=== PATIENT | female | born 1980 | race Caucasian/White ===

== ENCOUNTER 2022-03-07 12:18 | Emergency (ER) | payer MEDICARE, MEDICAID ==
[~2022-03-07] VITALS: Ht 165.1 cm; Wt 72.6 kg
[~2022-03-07 12:18] MED LIST: CEPH-507 PO; CHOL4POW4 PO; DESV100T16 PO; DOXE25CA46 PO; ERGO1250 PO; FERR325T18 PO; GABA-488; HYDR-34 PO; MIRT-68 PO; ONDN4T PO; OXCA600T10 PO; PANT40TA52 PO; PRD20T PO; ROPI1TAB PO; SUCR1TAB PO; TRAM-42 PO; ZOLP5TAB PO
--- NOTE | 2022-03-07 12:38 | ED Syncope ---
General Chief Complaint: Dizziness/Syncope Stated Complaint: SYNCOPE Nursing Triage Note: PT TO ROOM 02 VIA [facility] WITH C/O SYNCOPE, PASSING OUT X3, ABD PAIN AND HEADACHE. EMS REPORTS PT IS DIABETIC AND HAS NOT TAKEN INSULIN FOR "A LONG TIME". Source of Information: Patient, EMS (STEVE DUNCAN APRN) History of Present Illness Date Seen by Provider: Mar 07, 2022 Time Seen by Provider: 12:35 Initial Comments Patient is a 41-year-old female who presents to the emergency department via EMS for evaluation of recurrent syncope, abdominal pain, nausea/vomiting, and headache. Patient initially states she has not been having any diarrhea but shortly after her family arrived they states she has been having multiple episodes of diarrhea. Patient states she had some near syncopal episode yesterday. She states her GI symptoms also began yesterday. Patient reportedly did not hit her head when she syncopized per family. Patient does endorse methamphetamine use daily. (STEVE DUNCAN APRN) Allergies and Home Medications Allergies Coded Allergies: ibuprofen (Verified Allergy, Unknown, 03/07/22) Patient Home Medication List Home Medication List Reviewed: Yes (STEVE DUNCAN APRN) Cholestyramine (with Sugar) (Cholestyramine Packet) 4 Gm Powd.pack, 4 GM PO BID, (Reported) Entered as Reported by: CANDIDO CHOI on 02/18/20 1052 Desvenlafaxine Succinate (Desvenlafaxine Succinate ER) 100 Mg Tab.er.24h, 100 MG PO DAILY, (Reported) Entered as Reported by: PK MOYER on 11/27/17 1006 Doxepin HCl (Doxepin HCl) 25 Mg Capsule, 25 MG PO HS, (Reported) Entered as Reported by: DEIDRE CHI on 01/29/19 0838 Ergocalciferol (Vitamin D2) (Vitamin D2) 1,250 Mcg Capsule, 50,000 UNIT PO WEEK, (Reported) Entered as Reported by: CANDIDO CHOI on 02/18/20 1052 Ferrous Sulfate (Ferrous Sulfate) 325 Mg Tablet, 325 MG PO DAILY, (Reported) Entered as Reported by: CANDIDO CHOI on 02/18/20 1052 Hyoscyamine Sulfate (Hyoscyamine Sulfate) 0.125 Mg Tab.rapdis, 0.125 MG PO Q6H PRN for CRAMPS Prescribed by: Steve Duncan on 03/07/22 1506 Mirtazapine (Mirtazapine) 15 Mg Tablet, 45 MG PO HS, (Reported) Entered as Reported by: PK MOYER on 11/27/17 1006 Ondansetron (Ondansetron Odt) 4 Mg Tab.rapdis, 4 MG SL Q4H PRN for NAUSEA/VOMITING Prescribed by: Steve Duncan on 03/07/22 1506 Ondansetron HCl (Zofran) 4 Mg Tab, 4 MG PO for NAUSEA, (Reported) Entered as Reported by: CANDIDO CHOI on 02/18/20 1052 Oxcarbazepine (Oxcarbazepine) 600 Mg Tablet, 600 MG PO BID, (Reported) Entered as Reported by: PK MOYER on 11/27/17 1006 Pantoprazole Sodium (Pantoprazole Sodium) 40 Mg Tablet.dr, 40 MG PO DAILY, (Reported) Entered as Reported by: CANDIDO CHOI on 02/18/20 1052 Ropinirole HCl (Ropinirole HCl) 1 Mg Tablet, 1 MG PO BID, (Reported) Entered as Reported by: DEIDRE CHI on 01/29/19 0838 Sucralfate (Sucralfate) 1 Gm Tablet, 1 GM PO QID, (Reported) Entered as Reported by: CANDIDO CHOI on 02/18/20 1052 Zolpidem Tartrate (Ambien) 5 Mg Tablet, 5 MG PO HS, (Reported) Entered as Reported by: CANDIDO CHOI on 02/18/20 1052 Review of Systems Constitutional: see HPI EENTM: no symptoms reported Respiratory: no symptoms reported Cardiovascular: see HPI, syncope Gastrointestinal: see HPI, diarrhea, nausea, vomiting Genitourinary: no symptoms reported Musculoskeletal: no symptoms reported Skin: no symptoms reported Psychiatric/Neurological: No Symptoms Reported (STEVE DUNCAN APRN) Past Vyjzmru-Crrklq-Wqianf Hx Patient Social History Tobacco Use?: Yes Tobacco type used: Cigarettes Smoking Status: Heavy Tobacco Smoker Use of E-Cig and/or Vaping dev: No Use of E-Cig and/or Vaping Jonathon: Never a User Substance use?: Yes Substance type: Methamphetamine Substance frequency: Daily Alcohol Use?: No Pt feels they are or have been: No (STEVE DUNCAN APRN) Physical Exam Vital Signs Vital Signs - First Documented 03/07/22 03/07/22 12:27 15:32 Temp 35.6 Pulse 73 Resp 14 B/P (MAP) 117/63 (81) Pulse Ox 99 O2 Delivery Room Air (RU HANKS MD) Vital Signs Capillary Refill : Less Than 3 Seconds (STEVE DUNCAN APRN) Height, Weight, BMI Height: '" Weight: lbs. oz. kg; 26.00 BMI Method: General Appearance: No Apparent Distress, WD/WN HEENT: PERRL/EOMI, TMs Normal, Normal ENT Inspection, Pharynx Normal Neck: Normal Inspection, Non Tender, Supple Cardiovascular: Regular Rate, Rhythm Respiratory: Chest Non Tender, Lungs Clear, Normal Breath Sounds Gastrointestinal: Soft, Tenderness Extremities: Non Tender, No Calf Tenderness Neurologic/Psychiatric: Alert, Oriented x3, No Motor/Sensory Deficits, Normal Mood/Affect Skin: Normal Color, Warm/Dry (STEVE DUNCAN APRN) Progress/Results/Core Measures Results/Orders Lab Results Laboratory Tests Test 03/07/22 12:30 03/07/22 12:45 03/07/22 13:59 Range/Units Glucometer 88 70-110 MG/DL White Blood Count 7.4 4.3-11.0 10^3/uL Red Blood Count 4.65 3.80-5.11 10^6/uL Hemoglobin 9.1 L 11.5-16.0 g/dL Hematocrit 33 L 35-52 % Mean Corpuscular Volume 71 L 80-99 fL Mean Corpuscular Hemoglobin 20 L 25-34 pg Mean Corpuscular Hemoglobin Concent 28 L 32-36 g/dL Red Cell Distribution Width 16.5 H 10.0-14.5 % Platelet Count 234 130-400 10^3/uL Mean Platelet Volume 9.9 9.0-12.2 fL Immature Granulocyte % (Auto) 0 % Neutrophils (%) (Auto) 82 H 42-75 % Lymphocytes (%) (Auto) 10 L 12-44 % Monocytes (%) (Auto) 7 0-12 % Eosinophils (%) (Auto) 1 0-10 % Basophils (%) (Auto) 0 0-10 % Neutrophils # (Auto) 6.1 1.8-7.8 10^3/uL Lymphocytes # (Auto) 0.8 L 1.0-4.0 10^3/uL Monocytes # (Auto) 0.5 0.0-1.0 10^3/uL Eosinophils # (Auto) 0.1 0.0-0.3 10^3/uL Basophils # (Auto) 0.0 0.0-0.1 10^3/uL Immature Granulocyte # (Auto) 0.0 0.0-0.1 10^3/uL Sodium Level 139 135-145 MMOL/L Potassium Level 3.6 3.6-5.0 MMOL/L Chloride Level 108 H 98-107 MMOL/L Carbon Dioxide Level 22 21-32 MMOL/L Anion Gap 9 5-14 MMOL/L Blood Urea Nitrogen 21 H 7-18 MG/DL Creatinine 0.82 0.60-1.30 MG/DL Estimat Glomerular Filtration Rate 93 BUN/Creatinine Ratio 26 Glucose Level 71 70-105 MG/DL Calcium Level 9.3 8.5-10.1 MG/DL Corrected Calcium 9.1 8.5-10.1 MG/DL Total Bilirubin 0.3 0.1-1.0 MG/DL Aspartate Amino Transf (AST/SGOT) 21 5-34 U/L Alanine Aminotransferase (ALT/SGPT) 18 0-55 U/L Alkaline Phosphatase 106 40-136 U/L Total Protein 7.7 6.4-8.2 GM/DL Albumin 4.2 3.2-4.5 GM/DL Urine Color YELLOW Urine Clarity CLEAR Urine pH 5.5 5-9 Urine Specific [place] >=1.030 1.016-1.022 Urine Protein 1+ H NEGATIVE Urine Glucose (UA) 2+ H NEGATIVE Urine Ketones NEGATIVE NEGATIVE Urine Nitrite NEGATIVE NEGATIVE Urine Bilirubin NEGATIVE NEGATIVE Urine Urobilinogen 1.0 < = 1.0 MG/DL Urine Leukocyte Esterase TRACE H NEGATIVE Urine RBC (Auto) NEGATIVE NEGATIVE Urine RBC NONE /HPF Urine WBC 2-5 /HPF Urine Squamous Epithelial Cells 5-10 /HPF Urine Crystals NONE /LPF Urine Bacteria MODERATE H /HPF Urine Casts PRESENT /LPF Urine Hyaline Casts 0-2 H /LPF Urine Mucus LARGE H /LPF Urine Culture Indicated YES Urine Opiates Screen NEGATIVE NEGATIVE Urine Oxycodone Screen NEGATIVE NEGATIVE Urine Methadone Screen NEGATIVE NEGATIVE Urine Propoxyphene Screen NEGATIVE NEGATIVE Urine Barbiturates Screen NEGATIVE NEGATIVE Ur Tricyclic Antidepressants Screen NEGATIVE NEGATIVE Urine Phencyclidine Screen NEGATIVE NEGATIVE Urine Amphetamines Screen POSITIVE H NEGATIVE Urine Methamphetamines Screen POSITIVE H NEGATIVE Urine Benzodiazepines Screen NEGATIVE NEGATIVE Urine Cocaine Screen NEGATIVE NEGATIVE Urine Cannabinoids Screen NEGATIVE NEGATIVE (RU HANKS MD) Micro Results Microbiology 03/07/22 Urine Culture - Preliminary, Resulted Culture In Progress (RU HANKS MD) Vital Signs/I&O 03/07/22 03/07/22 03/07/22 12:27 12:53 15:32 Temp 35.6 Pulse 73 85 80 72 82 Resp 14 16 B/P (MAP) 117/63 (81) 126/85 (99) 115/72 115/89 (98) 117/73 (88) Pulse Ox 99 O2 Delivery Room Air Room Air (RU HANKS MD) Blood Pressure Mean: 81 Progress Progress Note : Progress Note Patient is nontoxic on exam. Vital signs are overall reassuring. No hypoxia or hypotension noted. Abdominal exam is notable for diffuse tenderness to palpation without focality. No abdominal distention or rigidity appreciated. Patient is awake alert answers all questions appropriately. Orders placed for CBC, CMP, urinalysis, IV insertion, EKG, and urine drug screen. CBC notable for anemia. This is not new as review of historical labs in the EMR revealed hemoglobins lower than the one today. CMP is largely unremarkable. Urinalysis notable for bacteriuria and trace leukocyte Estrace. No indication for treatment at this time as patient denies any urinary symptoms. We will wait on culture results to guide antimicrobial therapy. UDS positive for methamphetamine. No indication for cross-sectional imaging of the abdomen/pe lvis at this time. Patient likely had vasovagal syncope as she states she was attempting to go to the bathroom each time she syncopized. She is not orthostatic while in the ER. She was given a liter of IV fluids. She will be discharged home with recommendations for supportive care and close follow-up with PCP. Return precautions for urgent symptomology discussed. Patient verb alized understanding. (STEVE DUNCAN APRN) EKG : EKG Time: 12:36 Rate: 82 Rhythm: Normal Sinus Intervals: Normal ECG Impression: Normal (STEVE DUNCAN APRN) Departure Impression Primary Impression: Vasovagal syncope Additional Impression: AGE (acute gastroenteritis) Disposition: 01 HOME, SELF-CARE Condition: Stable Departure-Patient Inst. Decision time for Depature: 15:00 (STEVE DUNCAN APRN) Referrals: NEETA WALSH MD (PCP) Primary Care Physician [facility] (Family) Primary Care Physician Patient Instructions: Fainting, Adult ED Scripts Hyoscyamine Sulfate (Hyoscyamine Sulfate) 0.125 Mg Tab.rapdis 0.125 MG PO Q6H PRN for CRAMPS for 3 Days, #12 TAB 0 Refills Prov: STEVE DUNCAN APRN 03/07/22 Ondansetron (Ondansetron Odt) 4 Mg Tab.rapdis 4 MG SL Q4H PRN for NAUSEA/VOMITING for 3 Days, #18 TAB 0 Refills Prov: STEVE DUNCAN APRN 03/07/22 PHYSICIAN ATTESTATION NOTE: I was present in the ER while SWITCHGEAR REPAIRER / PA saw the patient, but I was not involved in the care, exam, or management of the patient. (RU HANKS MD) STEVE DUNCAN APRN Mar 07, 2022 12:38 RU HANKS MD Mar 09, 2022 14:21
[2022-03-07 12:52] LABS: BASOPHILS % (AUTO) 0 % (0-10); EOSINOPHILS # (AUTO) 0.1 10^3/uL (0.0-0.3); EOSINOPHILS % (AUTO) 1 % (0-10); HEMATOCRIT 33 % (35-52); HEMOGLOBIN 9.1 g/dL (11.5-16.0); LYMPHOCYTES # (AUTO) 0.8 10^3/uL (1.0-4.0); LYMPHOCYTES % (AUTO) 10 % (12-44); MEAN CORPUSCULAR HEMOGLOBIN 20 pg (25-34); MEAN CORPUSCULAR HGB CONC 28 g/dL (32-36); MEAN CORPUSCULAR VOLUME 71 fL (80-99); MEAN PLATELET VOLUME 9.9 fL (9.0-12.2); MONOCYTES # (AUTO) 0.5 10^3/uL (0.0-1.0); MONOCYTES % (AUTO) 7 % (0-12); NEUTROPHILS # (AUTO) 6.1 10^3/uL (1.8-7.8); NEUTROPHILS % (AUTO) 82 % (42-75); PLATELET COUNT 234 10^3/uL (130-400); WHITE BLOOD COUNT 7.4 10^3/uL (4.3-11.0)
[2022-03-07 12:53] VITALS: BP_SYST 115; BP_SYST 117; BP_SYST 126; BP_DIAS 73; BP_DIAS 85; BP_DIAS 89
[2022-03-07 13:02] LABS: ALBUMIN 4.2 GM/DL (3.2-4.5); POTASSIUM 3.6 MMOL/L (3.6-5.0)
[2022-03-07 13:04] LABS: CALCIUM 9.3 MG/DL (8.5-10.1)
[2022-03-07 13:05] LABS: TOTAL PROTEIN 7.7 GM/DL (6.4-8.2)
[2022-03-07 13:06] LABS: BILIRUBIN,TOTAL 0.3 MG/DL (0.1-1.0)
[2022-03-07 13:08] LABS: CREATININE SERUM 0.82 MG/DL (0.60-1.30)
[2022-03-07] MEDS ORDERED: LACTATED RINGERS 1,000 ML IV SCH (13:30)
[2022-03-07 14:04] LABS: BILIRUBIN,URINE NEGATIVE (NEGATIVE); CLARITY,URINE CLEAR; COLOR,URINE YELLOW; GLUCOSE, URINE (UA) 2+ (NEGATIVE); KETONES,URINE NEGATIVE (NEGATIVE); LEUKOCYTE ESTERASE ,URINE TRACE (NEGATIVE); NITRITE,URINE NEGATIVE (NEGATIVE); PH,URINE 5.5 (5-9); PROTEIN,URINE 1+ (NEGATIVE)
[2022-03-07 14:35] LABS: AMPHETAMINE SCREEN, URINE POSITIVE (NEGATIVE); BARBITURATE SCREEN URINE NEGATIVE (NEGATIVE); BENZODIAZEPINES SCREEN URINE NEGATIVE (NEGATIVE); CANNABINOID SCREEN, URINE NEGATIVE (NEGATIVE); COCAINE SCREEN URINE NEGATIVE (NEGATIVE); METHADONE STAT NEGATIVE (NEGATIVE); OPIATE SCREEN URINE NEGATIVE (NEGATIVE); OXYCODONE STAT NEGATIVE (NEGATIVE); PROPOXYPHENE STAT NEGATIVE (NEGATIVE); TRICYCLIC ANTIDEPRESSANTS SCRE NEGATIVE (NEGATIVE)
[2022-03-07 14:50] LABS: BACTERIA,URINE MODERATE /HPF; HYALINE CASTS, URINE 0-2 /LPF
[2022-03-07] MEDS ORDERED: HYOS-6 PO (15:06)
[2022-03-07] MEDS ORDERED: ONDA4TAB11 SL (15:06)
[2022-03-07 15:32] VITALS: BP 115/72
== END 2022-03-07 15:32 | disposition home or self-care (01) ==
LOC: EDUNIT# 12:18 → ER 12:20
DX: R55 Syncope and collapse (principal); K52.9 Noninfective gastroenteritis and colitis, unspecified; D64.9 Anemia, unspecified; R82.71 Bacteriuria; F15.90 Other stimulant use, unspecified, uncomplicated; F17.210 Nicotine dependence, cigarettes, uncomplicated; Z28.310 Unvaccinated for COVID-19
CPT/HCPCS: 36415; 80053; 80306; 81000; 82947; 84703; 85025; 87077; 87088; 93005